=== PATIENT | male | born 1995 | race Caucasian/White ===

== ENCOUNTER 2023-12-07 14:11 | Emergency (ER) | payer OTHER ==
[2023-12-07] MEDS: Sodium Chloride 0.9% 10 ML Syringe FLUSH PRN (15:44)
[2023-12-07] MEDS: HYDROmorphone 0.5 MG/0.5 ML Syringe IVPUSH ONE (15:44)
[2023-12-07] MEDS ORDERED: Propofol 200 MG/20 ML SDV ONE (16:45)
== END 2023-12-07 18:38 | disposition home or self-care (01) ==
LOC: JP.ED 14:11
DX: S43.005A Unspecified dislocation of left shoulder joint, initial encounter (principal); W18.39XA Other fall on same level, initial encounter; Y93.89 Activity, other specified; Y99.0 Civilian activity done for income or pay
CPT/HCPCS: 23650; 73030; 96374; 99283; J1170; J2704; J3490